=== PATIENT | male | born 1945 | race Caucasian/White ===

== ENCOUNTER 2017-12-08 16:38 | Emergency (ER) | payer OTHER, BC ==
[~2017-12-08] VITALS: Ht 170.2 cm; Wt 84.5 kg
[~2017-12-08 16:38] MED LIST: ASPIRIN EC325 MG PO; CELEBREX200 MG PO; DOCUSATE SODIU100 MG PO; EXFORGE HCT 101 EAC2 PO; HYDROCODON-ACE1 EAC7 PO; IRON325 M1 PO; LO-DOSE ASPIRIN81 M1 PO; METOPROLOL SUCC50 MG PO; PRAVACHOL80 MG PO; SPIRONOLACTONE25 MG PO
[2017-12-08 17:21] LABS: HEMATOCRIT 38.3 % (38.0-50.0); HEMOGLOBIN 12.5 G/DL (12.5-16.6); MCH 25.5 PG (29.0-34.0); MCHC 32.6 G/DL (30.0-36.0); MCV 78.2 FL (86-99); PLATELET COUNT 202 K/uL (156-360); RBC DIS.WIDTH-CV 22.9 % (11.8-14.6); RBC DIS.WIDTH-SD 63.7 % (39-53); WHITE BLOOD COUNT 28.6 K/uL (4.1-10.2)
[2017-12-08 17:32] LABS: CHLORIDE 99 mEq/L (99-109); POTASSIUM 4.7 mEq/L (3.7-5.4); SODIUM 133 mEq/L (136-147)
[2017-12-08 17:34] LABS: GLUCOSE 208 mg/dL (70-99)
[2017-12-08 17:38] LABS: CREATININE 1.4 mg/dL (0.6-1.3); GFR ESTIMATE (CALCULATED) 53 mL/min/ (58.99-99999)
[2017-12-08 17:39] LABS: UREA NITROGEN (BUN) 19 mg/dL (9-23)
[2017-12-08 20:15] LABS: APPEARANCE CLEAR ((CLEAR)); BILIRUBIN NEGATIVE; BLOOD SMALL; COLOR YELLOW ((YELLOW)); GLUCOSE (STRIP) 50; KETONES NEGATIVE; LEUKOCYTES NEGATIVE; NITRITE NEGATIVE; PROTEIN (STRIP) 100; UROBILINOGEN 0.2 MG/DL (0.2-1.0)
[2017-12-08 20:22] LABS: BACTERIA RARE /HPF; EPITHELIAL CELLS NONE SEEN /HPF; MUCUS 1+ /LPF; UCUL ADDED? NO; WHITE BLOOD CELLS 0-5 /HPF (0-5)
[2017-12-08 20:34] LABS: TOTAL PROTEIN 7.9 g/dL (6.4-8.3)
[2017-12-08 20:36] LABS: TOTAL BILIRUBIN 1.1 mg/dL (0.0-1.0)
[2017-12-08 20:37] LABS: ALKALINE PHOSPHATASE 78 IU/L (3-129)
[2017-12-08 20:39] LABS: AST (GOT) 26 IU/L (2-34)
[2017-12-08 20:40] LABS: ALT (GPT) 15 IU/L (3-49); DIRECT BILIRUBIN 0.4 mg/dL (0.0-0.3)
[2017-12-09 04:00] VITALS: BP 114/58
== END 2017-12-09 06:20 | disposition short-term general hospital (02) ==
LOC: RME 16:38 → EME 16:38 → RME 12-09 06:20
PROVIDERS: Physician Assistant Medical
DX: D72.829 Elevated white blood cell count, unspecified (principal); R50.9 Fever, unspecified; Z91.81 History of falling; K80.20 Calculus of gallbladder without cholecystitis without obstruction; J90 Pleural effusion, not elsewhere classified; I44.7 Left bundle-branch block, unspecified; I10 Essential (primary) hypertension; E78.5 Hyperlipidemia, unspecified; Z95.3 Presence of xenogenic heart valve; Z96.659 Presence of unspecified artificial knee joint
CPT/HCPCS: 71046; 74177; 80048; 80076; 81003; 83605; 85027; 87040; 93005; 99281; 99285; J0692; J1580; J3370